=== PATIENT | female | born 1950 | race Two or more races ===

== ENCOUNTER 2017-02-14 09:34 | Emergency (ER) | payer OTHER ==
[~2017-02-14] VITALS: Ht 154.9 cm; Wt 72.6 kg
[~2017-02-14 09:34] MED LIST: ATEN100T PO; ATOR20TA58 PO; METF850T2 PO; PANT40TA3 PO
[2017-02-14 09:50] VITALS: BP 128/67
[2017-02-14] MEDS ORDERED: LIDOCAINE 2% VISCOUS 15 ML SOLUTION. SWSW ONE (10:00)
[2017-02-14] MEDS ORDERED: AMOX875T PO (10:04)
[2017-02-14] MEDS ORDERED: IBUP-1007 PO (10:04)
--- NOTE | 2017-02-14 10:05 | PHYS DOC ---
Past Medical History Past Medical History: Diabetes-Type II, Hypertension, Other Past Surgical History: No Surgical History Alcohol Use: None Drug Use: None Adult General Chief Complaint Chief Complaint: MULTIPLE COMPLAINTS HPI HPI Patient is a 67 year old female with history of hypertension, high cholesterol , diabetes type 2, who presents with a sore throat and body aches and chills for 2 days. Patient denies any fever. Patient is German speaking and interpretation is provided by the daughter. Review of Systems Review of Systems Constitutional: body aches, chills [] Eyes: Denies change in visual acuity, redness, or eye pain [] HENT: sore throat [] Respiratory: Denies cough or shortness of breath [] Cardiovascular: No additional information not addressed in HPI [] GI: Denies abdominal pain, nausea, vomiting, bloody stools or diarrhea [] : Denies dysuria or hematuria [] Musculoskeletal: Denies back pain or joint pain [] Integument: Denies rash or skin lesions [] Neurologic: Denies headache, focal weakness or sensory changes [] Endocrine: Denies polyuria or polydipsia [] Allergies Allergies Allergies Coded Allergies Type Severity Reaction Last Updated Verified No Known Drug Allergies 07/09/13 No Physical Exam Physical Exam Constitutional: Well developed, well nourished, no acute distress, non-toxic appearance. [] HENT: Normocephalic, atraumatic, bilateral external ears normal, oropharynx moist, no oral exudates, nose normal. [] posterior pharynx is very erythematous with petechia lesions. Eyes: PERRLA, EOMI, conjunctiva normal, no discharge. [] Neck: Normal range of motion, no tenderness, supple, no stridor. [] Cardiovascular:Heart rate regular rhythm, no murmur [] Lungs & Thorax: Bilateral breath sounds clear to auscultation [] Abdomen: Bowel sounds normal, soft, no tenderness, no masses, no pulsatile masses. [] Skin: Warm, dry, no erythema, no rash. [] Back: No tenderness, no CVA tenderness. [] Extremities: No tenderness, no cyanosis, no clubbing, ROM intact, no edema. [] Neurologic: Alert and oriented X 3, normal motor function, normal sensory function, no focal deficits noted. [] Psychologic: Affect normal, judgement normal, mood normal. [] Current Patient Data Vital Signs Vital Signs Date Time Temp Pulse Resp B/P (MAP) Pulse Ox O2 Delivery O2 Flow Rate FiO2 02/14/17 09:50 98.3 84 18 128/67 (87) 95 Room Air 98.3 EKG EKG [] Radiology/Procedures Radiology/Procedures [] Course & Med Decision Making Course & Med Decision Making Pertinent Labs and Imaging studies reviewed. (See chart for details) Patient is in the ED with complaints of sore throat and body aches and chills for 2 days. Patient was discharged with amoxicillin for 10 days. Tylenol Motrin recommended for pain or fever. Follow-up with primary care doctor in one week. Dragon Disclaimer Dragon Disclaimer This electronic medical record was generated, in whole or in part, using a voice recognition dictation system. Departure Departure Impression: Primary Impression: Acute pharyngitis Additional Impression: Chills Disposition: HOME, SELF-CARE Condition: STABLE Referrals: PARAG OCHOA MD (PCP) follow up with your doctor in one week Patient Instructions: Viral and Bacterial Pharyngitis Additional Instructions: You were seen for a sore throat, body aches and chills. Take antibiotics twice a day as prescribed ensure you complete them. Take the prescribed pain medicine as needed. Use saltwater gargles as well. Follow-up with your doctor in one week. Scripts Ibuprofen (IBUPROFEN) 600 Mg Tablet 600 MG PO PRN Q6HRS Y for INFLAMMATION, #15 TAB MUST take with food. Prov: FILIPPO WERNER APRN 02/14/17 Amoxicillin (AMOXICILLIN) 875 Mg Tablet 1 TAB PO BID, #20 TAB Prov: FILIPPO WERNER APRN 02/14/17 Problem Qualifiers Primary Impression: Acute pharyngitis Pharyngitis/tonsillitis etiology: unspecified etiology Qualified Codes: J02.9 - Acute pharyngitis, unspecified FILIPPO WERNER APRN Feb 14, 2017 10:05
== END 2017-02-14 10:13 | disposition home or self-care (01) ==
LOC: ER 09:34
DX: J02.9 Acute pharyngitis, unspecified (principal); R68.83 Chills (without fever); M79.1 Myalgia; E11.9 Type 2 diabetes mellitus without complications; I10 Essential (primary) hypertension
CPT/HCPCS: 99283

== ENCOUNTER 2018-06-20 23:10 | Emergency (ER) | payer OTHER ==
[~2018-06-20] VITALS: Ht 160 cm; Wt 72.6 kg
[~2018-06-20 23:10] MED LIST changes: +AMOX875T PO; +IBUP-1007 PO; -METF850T2 PO; +METF850T8 PO
[2018-06-21] MEDS ORDERED: BUTA1TAB23 PO (00:11)
--- NOTE | 2018-06-21 00:11 | PHYS DOC ---
Past Medical History Past Medical History: Diabetes-Type II, Hypertension, Other Past Surgical History: No Surgical History Alcohol Use: None Drug Use: None Adult General Chief Complaint Chief Complaint: HYPERTENSION HPI HPI Patient is a 68 year old [f__sex] who presents with [] Review of Systems Review of Systems Constitutional: Denies fever or chills [] Eyes: Denies change in visual acuity, redness, or eye pain [] HENT: Denies nasal congestion or sore throat [] Respiratory: Denies cough or shortness of breath [] Cardiovascular: No additional information not addressed in HPI [] GI: Denies abdominal pain, nausea, vomiting, bloody stools or diarrhea [] : Denies dysuria or hematuria [] Musculoskeletal: Denies back pain or joint pain [] Integument: Denies rash or skin lesions [] Neurologic: Denies headache, focal weakness or sensory changes [] Endocrine: Denies polyuria or polydipsia [] All other systems were reviewed and found to be within normal limits, except as documented in this note. Allergies Allergies Allergies Coded Allergies Type Severity Reaction Last Updated Verified No Known Drug Allergies 07/09/13 No Physical Exam Physical Exam Constitutional: Well developed, well nourished, no acute distress, non-toxic appearance. [] HENT: Normocephalic, atraumatic, bilateral external ears normal, oropharynx moist, no oral exudates, nose normal. [] Eyes: PERRLA, EOMI, conjunctiva normal, no discharge. [] Neck: Normal range of motion, no tenderness, supple, no stridor. [] Cardiovascular:Heart rate regular rhythm, no murmur [] Lungs & Thorax: Bilateral breath sounds clear to auscultation [] Abdomen: Bowel sounds normal, soft, no tenderness, no masses, no pulsatile masses. [] Skin: Warm, dry, no erythema, no rash. [] Back: No tenderness, no CVA tenderness. [] Extremities: No tenderness, no cyanosis, no clubbing, ROM intact, no edema. [] Neurologic: Alert and oriented X 3, normal motor function, normal sensory function, no focal deficits noted. [] Psychologic: Affect normal, judgement normal, mood normal. [] Current Patient Data Vital Signs Vital Signs Date Time Temp Pulse Resp B/P (MAP) Pulse Ox O2 Delivery O2 Flow Rate FiO2 06/20/18 23:25 97.8 75 18 131/84 (100) 97 Room Air 97.8 EKG EKG [] Radiology/Procedures Radiology/Procedures [] Course & Med Decision Making Course & Med Decision Making Pertinent Labs and Imaging studies reviewed. (See chart for details) [] Dragon Disclaimer Dragon Disclaimer This electronic medical record was generated, in whole or in part, using a voice recognition dictation system. Departure Departure Impression: Primary Impression: Headache Additional Impression: Hx of essential hypertension Disposition: HOME, SELF-CARE Condition: IMPROVED Referrals: UNKNOWN PCP NAME (PCP) Patient Instructions: Headache, FAQs, Hypertension, [id number] Scripts Butalb/Acetaminophen/Caffeine ([id number] [id number]) 1 Each Tablet 1 EACH PO Q6HRS PRN for HEADACHE, #14 TAB Prov: DONN ELENA DO 06/21/18 Problem Qualifiers Primary Impression: Headache Headache type: unspecified Headache chronicity pattern: acute headache Intractability: not intractable Qualified Codes: R51 - Headache DONN ELENA DO Jun 21, 2018 00:11
[2018-06-21 00:28] VITALS: BP 135/63
== END 2018-06-21 00:30 | disposition home or self-care (01) ==
LOC: ER 23:10
DX: R51 Headache (principal); I10 Essential (primary) hypertension; E11.9 Type 2 diabetes mellitus without complications
CPT/HCPCS: 99283

== ENCOUNTER 2019-02-04 12:22 | Emergency (ER) | payer OTHER ==
[~2019-02-04] VITALS: Ht 162.6 cm; Wt 99.8 kg
[~2019-02-04 12:22] MED LIST changes: +BUTA1TAB23 PO; -PANT40TA3 PO; +PANT40TA77 PO
[2019-02-04] MEDS ORDERED: IBUPROFEN 200 MG TABLET. PO ONE (13:30)
--- NOTE | 2019-02-04 13:40 | RAD ---
KNEE RIGHT 3V 02/04/2019 1:06 PM INDICATION: Right knee pain. Patient felt a pop yesterday. COMPARISON: None available. TECHNIQUE: 3 views the right knee are provided. FINDINGS: There is no acute fracture or dislocation. Bone mineralization is within normal limits. Joint spaces are maintained. Regional soft tissues are within normal limits. There is no soft tissue gas or osseous erosion. There is a moderate knee joint effusion. Mild medial femorotibial osteophytes. IMPRESSION: No acute fracture or dislocation. Moderate knee joint effusion. No definite fracture is visualized. Consideration may be given for internal derangement and further characterization with MRI may be of benefit if symptoms persist. Electronically signed by: Kamryn Glass MD (02/04/2019 1:37 PM) [facility]
--- NOTE | 2019-02-04 14:11 | PHYS DOC ---
Past Medical History Past Medical History: Diabetes-Type II, Hypertension, Other Past Surgical History: No Surgical History Alcohol Use: None Drug Use: None Adult General Chief Complaint Chief Complaint: KNEE INJURY HPI HPI 69 y/o female presents to ER via POV for c/o rt knee pain. Pt denies fall/direct trauma. She reports she took ibuprofen yest. denies any OTC meds. today. Review of Systems Review of Systems Constitutional: Denies fever or chills [] Eyes: Denies change in visual acuity, redness, or eye pain [] HENT: Denies nasal congestion or sore throat [] Respiratory: Denies cough or shortness of breath [] Cardiovascular: No additional information not addressed in HPI [] GI: Denies abdominal pain, nausea, vomiting, bloody stools or diarrhea [] : Denies dysuria or hematuria [] Musculoskeletal: Denies back pain or joint pain [] Integument: Denies rash or skin lesions [] Neurologic: Denies headache, focal weakness or sensory changes [] Endocrine: Denies polyuria or polydipsia [] All other systems were reviewed and found to be within normal limits, except as documented in this note. Current Medications Current Medications Current Medications Medications (Trade) Dose Ordered Sig/Eneida Start Time Stop Time Status Last Admin Dose Admin Ibuprofen (Motrin) 600 mg 1X ONCE 02/04/19 13:30 02/04/19 13:31 DC 02/04/19 13:29 600 MG Allergies Allergies Allergies Coded Allergies Type Severity Reaction Last Updated Verified No Known Drug Allergies 07/09/13 No Physical Exam Physical Exam Constitutional: Well developed, well nourished, no acute distress, non-toxic appearance. [] HENT: Normocephalic, atraumatic, bilateral external ears normal, oropharynx moist, no oral exudates, nose normal. [] Eyes: PERRLA, EOMI, conjunctiva normal, no discharge. [] Neck: Normal range of motion, no tenderness, supple, no stridor. [] Cardiovascular:Heart rate regular rhythm, no murmur [] Lungs & Thorax: Bilateral breath sounds clear to auscultation [] Abdomen: Bowel sounds normal, soft, no tenderness, no masses, no pulsatile masses. [] Skin: Warm, dry, no erythema, no rash. [] Back: No tenderness, no CVA tenderness. [] Extremities: No tenderness, no cyanosis, no clubbing, ROM intact, no edema. [] Neurologic: Alert and oriented X 3, normal motor function, normal sensory function, no focal deficits noted. [] Psychologic: Affect normal, judgement normal, mood normal. [] Current Patient Data Vital Signs Vital Signs Date Time Temp Pulse Resp B/P (MAP) Pulse Ox O2 Delivery O2 Flow Rate FiO2 02/04/19 14:35 62 16 133/67 (89) 98 Room Air 02/04/19 13:03 97.7 97.7 EKG EKG [] Radiology/Procedures Radiology/Procedures PROCEDURE: KNEE RIGHT 3V KNEE RIGHT 3V 02/04/2019 1:06 PM INDICATION: Right knee pain. Patient felt a pop yesterday. COMPARISON: None available. TECHNIQUE: 3 views the right knee are provided. FINDINGS: There is no acute fracture or dislocation. Bone mineralization is within normal limits. Joint spaces are maintained. Regional soft tissues are within normal limits. There is no soft tissue gas or osseous erosion. There is a moderate knee joint effusion. Mild medial femorotibial osteophytes. IMPRESSION: No acute fracture or dislocation. Moderate knee joint effusion. No definite fracture is visualized. Consideration may be given for internal derangement and further characterization with MRI may be of benefit if symptoms persist. Electronically signed by: Gregorio Glass MD (02/04/2019 1:37 PM) [facility] DICTATED and SIGNED BY: GREGORIO GLASS MD DATE: 02/04/19 2014 Course & Med Decision Making Course & Med Decision Making Pertinent Labs and Imaging studies reviewed. (See chart for details) [] Dragon Disclaimer Dragon Disclaimer This electronic medical record was generated, in whole or in part, using a voice recognition dictation system. Departure Departure Impression: Primary Impression: Knee pain, right Additional Impression: Joint effusion of knee Disposition: 01 HOME, SELF-CARE Condition: STABLE Referrals: UNKNOWN PCP NAME (PCP) CLARA MENDOZA II, MD Patient Instructions: Knee Effusion, Knee Pain, Knee Wraps (Elastic Bandage) and RICE Additional Instructions: Tylenol and/or ibuprofen as needed for pain as directed on container. Call and schedule an appointment with an orthopedic doctor for reevaluation and further care and/or your primary care physician. With the Parvez wrap on your right knee while walking for knee support. Use your walker for stability. Problem Qualifiers DAVID DINH APRN Feb 04, 2019 14:11
[2019-02-04 14:35] VITALS: BP 133/67
== END 2019-02-04 14:35 | disposition home or self-care (01) ==
LOC: ER 12:22
DX: M25.461 Effusion, right knee (principal); E11.9 Type 2 diabetes mellitus without complications; I10 Essential (primary) hypertension
CPT/HCPCS: 73562; 99284